=== PATIENT | male | born 1960 ===

== ENCOUNTER 2020-11-14 02:36 | Inpatient (IN) | payer MEDICARE, MEDICAID ==
[~2020-11-14] VITALS: Ht 185.4 cm; Wt 86.8 kg
[2020-11-14] MEDS ORDERED: SODIUM CHLORIDE FLUSH 10ML SYR IVF ONE (03:00)
[2020-11-14 03:05] LABS: BASOPHILS % (AUTO) 0 % (0-1); EOSINOPHILS % (AUTO) 1 % (1-7); LYMPHOCYTES % (AUTO) 15 % (22-44); MEAN CORPUSCULAR HEMOGLOBIN 33.2 pg (27.5-34.5); MEAN PLATELET VOLUME 9.9 fL (7.4-10.4); MONOCYTES % (AUTO) 8 % (2-9); NEUTROPHILS % (AUTO) 75 % (42-75); PLATELET COUNT 108 x10^3/uL (130-400); RED BLOOD COUNT 4.73 x10^6/uL (4.38-5.82); RED CELL DISTRIBUTION WIDTH 15.2 % (9.4-14.8)
[2020-11-14 03:09] LABS: MD NO
[2020-11-14 03:13] LABS: ALANINE AMINOTRANSFERASE 82 U/L (12-78); ANION GAP 3 mmol/L (5-15); CALCIUM 8.7 mg/dL (8.5-10.1); CHLORIDE 106 mmol/L (98-107); CREATININE 1.06 mg/dL (0.7-1.3)
[2020-11-14 03:17] LABS: ALKALINE PHOSPHATASE 125 U/L (45-117); BILIRUBIN,TOTAL 0.8 mg/dL (0.2-1.0); TOTAL PROTEIN 7.3 g/dL (6.4-8.2); TROPONIN I 0.034 ng/mL (0.000-0.045)
[2020-11-14 03:26] LABS: INTERNATIONAL NORMALIZED RATIO 2.42 (0.93-1.1); PROTHROMBIN TIME 25.5 Seconds (9.6-11.5)
[2020-11-14] MEDS ORDERED: POLYETHYLENE GLYCOL 17 GM PACKET PO PRN (04:30)
[2020-11-14] MEDS ORDERED: ONDANSETRON 2MG/ML, 2ML IVPush PRN (04:30)
[2020-11-14] MEDS ORDERED: DOCUSATE 100 MG CAPSULE PO PRN (04:30)
[2020-11-14] MEDS ORDERED: BISACODYL 10 MG SUPP PR PRN (04:30)
[2020-11-14] MEDS ORDERED: morphine SULFATE 10 MG/ML, 1ML IVPush PRN (04:30)
[2020-11-14] MEDS ORDERED: ONDANSETRON ODT 4 MG PO PRN (04:30)
[2020-11-14] MEDS ORDERED: ALBUTEROL HFA 90 MCG/SPRAY INH PRN (04:30)
[2020-11-14] MEDS ORDERED: hydrALAzine 20 MG/ML, 1ML IVPush PRN (04:30)
[2020-11-14] MEDS ORDERED: ACETAMINOPHEN 325 MG TABLET PO PRN (04:30)
[2020-11-14] MEDS ORDERED: PROMETHAZINE 25 MG/ML, 1ML IM PRN (04:30)
[2020-11-14] MEDS ORDERED: OXYcodone IR 5MG TABLET PO PRN (04:30)
[2020-11-14 04:58] LABS: CHOL/HDL RATIO 2.4; FREE T4 (FREE THYROXINE) 1.06 ng/dL (0.76-1.46); LDL/HDL RATIO 1.3 (0.5-3.0)
[2020-11-14 05:13] VITALS: BP 125/81
[2020-11-14] MEDS ORDERED: HEPARIN 5,000 UNITS/ML, 1ML IV PRN (06:00)
[2020-11-14] MEDS ORDERED: HEPARIN 5,000 UNITS/ML, 1ML IV ONE (06:00)
[2020-11-14] MEDS ORDERED: HEPARIN 25,000 UNITS/250ML PMX 250 ML IV PRN (06:00)
[2020-11-14] MEDS: CARVEDILOL 3.125 MG TABLET PO SCH ×2 (06:16→18:00)
[2020-11-14 07:02] VITALS: BP 133/93
[2020-11-14] MEDS: TIOTROPIUM BROMIDE 18 MCG/INH INH SCH (09:00)
[2020-11-14] MEDS: LISINOPRIL 5 MG TABLET PO SCH (09:51)
[2020-11-14] MEDS: SPIRONOLACTONE 25 MG TABLET PO SCH (09:51)
[2020-11-14] MEDS: FUROSEMIDE 20 MG/2 ML IV SCH (09:51)
[2020-11-14 12:44] VITALS: BP 91/60
[2020-11-14 19:27] VITALS: BP 91/62
[2020-11-15 00:43] VITALS: BP 96/65
[2020-11-15 05:21] LABS: BASOPHILS % (AUTO) 1 % (0-1); EOSINOPHILS % (AUTO) 2 % (1-7); LYMPHOCYTES % (AUTO) 23 % (22-44); MEAN CORPUSCULAR HEMOGLOBIN 32.8 pg (27.5-34.5); MEAN CORPUSCULAR HGB CONC 33.6 g/dL (33.2-36.2); MEAN PLATELET VOLUME 10.8 fL (7.4-10.4); MONOCYTES % (AUTO) 13 % (2-9); NEUTROPHILS % (AUTO) 62 % (42-75); PLATELET COUNT 96 x10^3/uL (130-400); RED BLOOD COUNT 4.64 x10^6/uL (4.38-5.82); RED CELL DISTRIBUTION WIDTH 14.7 % (9.4-14.8)
[2020-11-15 05:33] LABS: MD NO
[2020-11-15 05:57] LABS: ALANINE AMINOTRANSFERASE 69 U/L (12-78); ALBUMIN 2.4 g/dL (3.4-5.0); ANION GAP 3 mmol/L (5-15); CALCIUM 8.3 mg/dL (8.5-10.1); CHLORIDE 108 mmol/L (98-107)
[2020-11-15 06:00] LABS: ALKALINE PHOSPHATASE 102 U/L (45-117); BILIRUBIN,TOTAL 0.6 mg/dL (0.2-1.0); CREATININE 0.93 mg/dL (0.7-1.3); TOTAL PROTEIN 6.3 g/dL (6.4-8.2)
[2020-11-15 06:21] VITALS: BP 117/83
[2020-11-15] MEDS: CARVEDILOL 3.125 MG TABLET PO SCH ×2 (06:31→17:57)
[2020-11-15] MEDS ORDERED: MAGNESIUM SULFATE PMX 2GM/50ML 50 ML IV ONE (07:00)
[2020-11-15] MEDS: SPIRONOLACTONE 25 MG TABLET PO SCH (07:42)
[2020-11-15] MEDS: FUROSEMIDE 20 MG/2 ML IV SCH (07:42)
[2020-11-15] MEDS: LISINOPRIL 5 MG TABLET PO SCH (07:43)
[2020-11-15] MEDS: TIOTROPIUM BROMIDE 18 MCG/INH INH SCH (09:12)
[2020-11-15] MEDS: APIXABAN 5 MG TABLET PO SCH ×2 (09:56→21:52)
[2020-11-15 12:22] VITALS: BP 90/59
[2020-11-15 20:41] VITALS: BP 90/58
[2020-11-16 02:37] VITALS: BP 100/66
[2020-11-16 05:45] LABS: BASOPHILS % (AUTO) 1 % (0-1); EOSINOPHILS % (AUTO) 2 % (1-7); LYMPHOCYTES % (AUTO) 21 % (22-44); MEAN CORPUSCULAR HEMOGLOBIN 32.5 pg (27.5-34.5); MEAN CORPUSCULAR HGB CONC 33.5 g/dL (33.2-36.2); MEAN PLATELET VOLUME 10.4 fL (7.4-10.4); MONOCYTES % (AUTO) 12 % (2-9); NEUTROPHILS % (AUTO) 64 % (42-75); PLATELET COUNT 108 x10^3/uL (130-400); RED BLOOD COUNT 4.72 x10^6/uL (4.38-5.82); RED CELL DISTRIBUTION WIDTH 14.7 % (9.4-14.8)
[2020-11-16] MEDS: CARVEDILOL 3.125 MG TABLET PO SCH (05:46)
[2020-11-16 05:49] LABS: CHLORIDE 108 mmol/L (98-107); MD NO
[2020-11-16 06:04] LABS: ALANINE AMINOTRANSFERASE 74 U/L (12-78); ALBUMIN 2.5 g/dL (3.4-5.0); ALKALINE PHOSPHATASE 103 U/L (45-117); ANION GAP 5 mmol/L (5-15); BILIRUBIN,TOTAL 0.7 mg/dL (0.2-1.0); CALCIUM 8.4 mg/dL (8.5-10.1); CREATININE 0.88 mg/dL (0.7-1.3); TOTAL PROTEIN 6.4 g/dL (6.4-8.2)
[2020-11-16] MEDS ORDERED: MAGNESIUM SULFATE PMX 2GM/50ML 50 ML IV ONE (07:00)
[2020-11-16 07:05] VITALS: BP 93/56
[2020-11-16] MEDS: APIXABAN 5 MG TABLET PO SCH (08:11)
[2020-11-16] MEDS: LISINOPRIL 5 MG TABLET PO SCH (08:12)
[2020-11-16] MEDS: SPIRONOLACTONE 25 MG TABLET PO SCH (08:12)
[2020-11-16] MEDS ORDERED: ALBU18HF INH (08:24)
[2020-11-16] MEDS ORDERED: MAGN400T50 PO (08:24)
[2020-11-16] MEDS ORDERED: SPIR25TA PO (08:24)
[2020-11-16] MEDS ORDERED: APIX5TAB PO (08:24)
[2020-11-16] MEDS ORDERED: ATOR40TA PO (08:24)
[2020-11-16] MEDS ORDERED: FURO20TA3 PO (08:24)
[2020-11-16] MEDS ORDERED: LISI5TAB7 PO (08:24)
[2020-11-16] MEDS ORDERED: FOLI1TAB32 PO (08:24)
[2020-11-16] MEDS ORDERED: TIOT4MIS3 INH (08:24)
[2020-11-16] MEDS ORDERED: CARV3.1212 PO (08:24)
[2020-11-16] MEDS: TIOTROPIUM BROMIDE 18 MCG/INH INH SCH (08:57)
[2020-11-16] MEDS ORDERED: FUROSEMIDE 20 MG TABLET PO SCH (09:00)
[2020-11-16] MEDS ORDERED: MAGNESIUM OXIDE 400 MG TABLET PO SCH (09:00)
[2020-11-22] MEDS ORDERED: APIXABAN 5 MG TABLET PO SCH (09:00)
== END 2020-11-16 12:00 | disposition home or self-care (01) | DRG 175 ==
LOC: ED 03:29 → EDIP 03:41 → 4EST 05:09 → DCLOUNGE 11-16 11:53
PROVIDERS: ADMIT Internal Medicine; ATTEND Family Medicine
DX: I26.99 Other pulmonary embolism without acute cor pulmonale (principal); J96.01 Acute respiratory failure with hypoxia; I50.43 Acute on chronic combined systolic (congestive) and diastolic (congestive) heart failure; D68.69 Other thrombophilia; I42.6 Alcoholic cardiomyopathy; I48.20 Chronic atrial fibrillation, unspecified; K70.30 Alcoholic cirrhosis of liver without ascites; B18.2 Chronic viral hepatitis C; D69.59 Other secondary thrombocytopenia; F12.90 Cannabis use, unspecified, uncomplicated; F15.10 Other stimulant abuse, uncomplicated; I11.0 Hypertensive heart disease with heart failure; J44.9 Chronic obstructive pulmonary disease, unspecified; R74.8 Abnormal levels of other serum enzymes; Z79.01 Long term (current) use of anticoagulants; Z80.9 Family history of malignant neoplasm, unspecified; Z87.891 Personal history of nicotine dependence; Z91.14 Patient's other noncompliance with medication regimen; Z86.19 Personal history of other infectious and parasitic diseases
CPT/HCPCS: 36415; 80053; 80061; 83036; 83735; 83880; 84100; 84439; 84443; 84484; 85025; 85520; 85610; 85730; 93005; 93306; G0378; J1644; J1940; J3475